=== PATIENT | female | born 1960 | race Caucasian/White ===

== ENCOUNTER 2019-05-08 09:40 | Emergency (ER) | payer OTHER, MEDICAID ==
[~2019-05-08] VITALS: Ht 162.6 cm; Wt 72.6 kg
[~2019-05-08 09:40] MED LIST: MAXALT MLT ODT10 M1 PO; ZPAK PO
[2019-05-08] MEDS ORDERED: ALLEGRA-D 24 H1 EACH PO (09:52)
[2019-05-08] MEDS ORDERED: LIDOCAINE 2%2 %/5 GM TOP (10:38)
[2019-05-08] MEDS ORDERED: NORCO 5-325 TA1 EAC1 PO (10:38)
[2019-05-08] MEDS ORDERED: TUCKS1 EAC1 TOP (10:38)
[2019-05-08] MEDS ORDERED: HYDROCORTISONE30 G9 RECTAL (10:38)
[2019-05-08 11:03] VITALS: BP 123/76
== END 2019-05-08 11:04 | disposition home or self-care (01) ==
LOC: M.ERS 09:40
DX: K64.4 Residual hemorrhoidal skin tags (principal); Z88.0 Allergy status to penicillin